=== PATIENT | male | born 1980 | race Two or more races ===

== ENCOUNTER 2016-11-23 15:57 | Emergency (ER) | payer OTHER ==
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
[2016-11-23] MEDS ORDERED: SODIUM CHLORIDE 2,000 ML IV STA (16:20)
[2016-11-23] MEDS ORDERED: ONDANSETRON 4 MG/2 ML VIAL IVPB ONE (16:22)
[2016-11-23] MEDS ORDERED: KETOROLAC TROMETHAMINE 30 MG/1 ML VIAL IVPUSH ONE (16:22)
[2016-11-23 16:48] VITALS: BP 113/68; PULSE 94; TEMP 98.3; BMI 29.4
[2016-11-23] MEDS ORDERED: ONDANSETRON 4 MG/2 ML VIAL ONE ×2 (17:14→17:15)
[2016-11-23] MEDS ORDERED: KETOROLAC TROMETHAMINE 30 MG/1 ML VIAL ONE (17:14)
[2016-11-23 17:17] LABS: BASOPHIL 0.4 % (0-2.0); EOSINOPHIL 0.6 % (0-4.5); MCH 29.2 pg (25.7-33.7); MCHC 34.4 g/dl (32.0-35.9); MEAN CELL VOLUME 84.9 fl (80-96); MEAN PLT VOLUME 8.3 fl (7.5-11.1); PLATELET COUNT 229 K/MM3 (134-434); RDW 13.7 % (11.9-15.9); WHITE BLOOD COUNT 13.3 K/mm3 (4.0-10.0)
[2016-11-23 17:39] LABS: INR 1.08 (0.82-1.09); PROTHROMBIN TIME (PATIENT) 11.9 SEC (9.98-11.88)
[2016-11-23 17:44] LABS: ALBUMIN 4.2 g/dl (3.4-5.0); ALK PHOS 78 U/L (45-117); ANION GAP 10 (8-16); BILIRUBIN,TOTAL 0.5 mg/dL (0.2-1.0); CALCIUM 8.9 mg/dL (8.5-10.1); CO2 28 mmol/L (21-32); CREATININE 1.2 mg/dL (0.7-1.3); GLUCOSE,RANDOM 80 mg/dL (74-106); SGOT/AST 40 U/L (15-37); SGPT/ALT 97 U/L (12-78); TOT PROT 7.6 g/dl (6.4-8.2)
[2016-11-23] MEDS ORDERED: ACETAMINOPHEN 500 MG TABLET (FP) PO ONE (19:54)
[2016-11-23] MEDS ORDERED: ACETAMINOPHEN 325 MG TABLET (FP) ONE (19:59)
[2016-11-23 20:24] LABS: URINE APPEARANCE CLOUDY; URINE BILIRUBIN NEGATIVE (NEGATIVE); URINE BLOOD NEGATIVE (NEGATIVE); URINE COLOR LTYELLOW; URINE GLUCOSE (UA) NEGATIVE (NEGATIVE); URINE KETONE TRACE (NEGATIVE); URINE LEUK ESTERASE NEGATIVE (NEGATIVE); URINE NITRITE NEGATIVE (NEGATIVE); URINE PROTEIN NEGATIVE (NEGATIVE); URINE UROBILINOGEN NEGATIVE E.U./dl (0.2-1.0)
--- NOTE | 2016-11-24 08:38 | EKG ---
Test Reason : Blood Pressure : / mmHG Vent. Rate : 090 BPM Atrial Rate : 090 BPM P-R Int : 160 ms QRS Dur : 094 ms QT Int : 350 ms P-R-T Axes : 054 -06 039 degrees QTc Int : 428 ms NORMAL SINUS RHYTHM NORMAL ECG NO PREVIOUS ECGS AVAILABLE Confirmed by LINDA SYKES MD ([id number]) on 11/24/2016 8:37:38 AM Referred By: Confirmed By:LINDA SYKES MD
== END 2016-11-23 22:45 | disposition home or self-care (01) ==
LOC: JER 15:57
PROC: 3E0333Z Introduction of Anti-inflammatory into Peripheral Vein, Percutaneous Approach (ICD-10-PCS; principal; 2016-11-23)
PROC: 3E0337Z Introduction of Electrolytic and Water Balance Substance into Peripheral Vein, Percutaneous Approach (ICD-10-PCS; 2016-11-23)
DX: S00.93XA Contusion of unspecified part of head, initial encounter (principal); V94.0XXA Hitting object or bottom of body of water due to fall from watercraft, initial encounter; Y93.19 Activity, other involving water and watercraft; Y92.828 Other wilderness area as the place of occurrence of the external cause
CPT/HCPCS: 36415; 70450-TC; 71020-TC; 74177-TC; 80053; 81003; 85025; 85610; 93005; 93010; 99283-25